=== PATIENT | male | born 1985 | race Caucasian/White ===

== ENCOUNTER 2017-05-08 16:44 | Emergency (ER) | payer BC ==
[~2017-05-08 16:44] MED LIST: ALBUTEROL MININEB NEB; HYCODAN60 ML 5MG/ DOB; PHENERGAN25 MG PO; PREDNISONE1 MG PO; ZITHROMAX1 G/PKT PO
== END 2017-05-08 17:45 | disposition home or self-care (01) ==
LOC: CED 16:44 → CFTX 16:44
DX: S61.210A Laceration without foreign body of right index finger without damage to nail, initial encounter (principal); F17.210 Nicotine dependence, cigarettes, uncomplicated; Z23 Encounter for immunization; W45.8XXA Other foreign body or object entering through skin, initial encounter; Y92.009 Unspecified place in unspecified non-institutional (private) residence as the place of occurrence of the external cause
CPT/HCPCS: 12001; 90471; 90715; 99283